=== PATIENT | female | born 1980 | race Caucasian/White ===

== ENCOUNTER 2016-09-20 10:39 | Emergency (ER) | payer MEDICAID, OTHER ==
[2016-09-20 10:56] VITALS: RESP 16; TEMP 98.4
[2016-09-20] MEDS ORDERED: NS 1,000 ML IV ONE ×2 (11:01)
[2016-09-20] MEDS ORDERED: ONDANSETRON 4 MG/2 ML VIAL IVP ONE ×2 (11:01→13:00)
[2016-09-20] MEDS ORDERED: KETOROLAC 30 MG/1 ML SDV IVP ONE (11:01)
--- NOTE | 2016-09-20 11:07 | UCPHY ---
H & P Patient Type: Established Chief Complaint Nursing Narrative: c/o nausea, diarrhea, LINDER, weakness x 2 days Time Seen by Provider: 09/20/16 10:56 HPI/ROS: CHIEF COMPLAINT: Diarrhea HISTORY OF PRESENT ILLNESS: The patient is a 35-year-old female who comes to the Urgent Care complaining of diarrhea for the last 3 days. She had a low- grade fever at home as well as nausea. No abdominal pain. She denies any risk of . No urinary symptoms. She has a history of cholecystectomy. She has not vomited but has felt nauseous. She feels dehydrated and weak. She has not been traveling. She does not drink any unfiltered water. REVIEW OF SYSTEMS: Constitutional: denies: chills, fever, recent illness, recent injury EENTM: denies: blurred vision, double vision, nose congestion Respiratory: denies: cough, shortness of breath Cardiac: denies: chest pain, irregular heart rate, lightheadedness, palpitations Gastrointestinal/Abdominal: See HPI Genitourinary: denies: dysuria, frequency, hematuria, pain Musculoskeletal: denies: joint pain, muscle pain Skin: denies: lesions, rash, jaundice, bruising Neurological: denies: headache, numbness, paresthesia, tingling, dizziness, weakness Hematologic/Lymphatic: denies: blood clots, easy bleeding, easy bruising Immunologic/allergic: denies: HIV/AIDS, transplant EXAM: GENERAL: Well-appearing, well-nourished and in no acute distress. HEAD: Atraumatic, normocephalic. EYES: Pupils equal round and reactive to light, extraocular movements intact, sclera anicteric, conjunctiva are normal. ENT: TMs normal, nares patent, oropharynx clear without exudates. Moist mucous membranes. NECK: Normal range of motion, supple without lymphadenopathy or JVD. LUNGS: Breath sounds clear to auscultation bilaterally and equal. No wheezes rales or rhonchi. HEART: Regular rate and rhythm without murmurs, rubs or gallops. ABDOMEN: Soft, nontender, normoactive bowel sounds. No guarding, no rebound. No masses appreciated. BACK: No CVA tenderness, no spinal tenderness, step-offs or deformities EXTREMITIES: Normal range of motion, no pitting or edema. No clubbing or cyanosis. NEUROLOGICAL: Cranial nerves II through XII grossly intact. Normal speech, normal gait. 5/5 strength, normal movement in all extremities, normal sensation PSYCH: Normal mood, normal affect. SKIN: Warm, dry, normal turgor, no visible rashes or lesions. Source: Patient Exam Limitations: No limitations - Personal History LMP (Females 10-55): 22-28 Days Ago - Medical/Surgical History Hx Asthma: No Hx Chronic Respiratory Disease: No Hx Diabetes: No Hx Cardiac Disease: No Hx Renal Disease: No Hx Cirrhosis: No Hx Alcoholism: No Hx HIV/AIDS: No Hx Splenectomy or Spleen Trauma: No Other PMH: denies - Family History Significant Family History: No pertinent family hx - Social History Smoking Status: Never smoked Alcohol Use: Sober Drug Use: None Constitutional: Initial Vital Signs Temperature (C) 36.9 C 09/20/16 10:54 Heart Rate 82 09/20/16 10:54 Respiratory Rate 16 09/20/16 10:54 Blood Pressure 125/93 H 09/20/16 10:54 O2 Sat (%) 96 09/20/16 10:54 O2 Delivery Mode Room Air Allergies/Adverse Reactions: No Known Allergies Allergy (Verified 06/24/15 10:51) Home Medications: Medication Instructions Recorded Promethazine HCl [Phenergan 25mg 25 mg PO TID PRN #10 tab 09/20/16 (RX)] Medical Decision Making ED Course/Re-evaluation: 12:00 p.m. the patient's abdominal exam remains benign. She has received about half of her IV fluids. 1:00 p.m. the patient is feeling better but her nausea is beginning to return. I will treat her with another dose of Zofran. She would like to go home. Her abdominal exam remains benign. Her vital signs are stable. I will prescribe her Phenergan to take at home but she plans to drive. She declines further workup or testing at this time. We discussed indications for returning. Differential Diagnosis: Partial list of the Differential diagnosis considered include but were not limited to; gastritis, diarrhea, peptic ulcer disease and although unlikely based on the history and physical exam, I also considered appendicitis, diverticulitis, pelvic infection, urinary tract infection, kidney stone, . I discussed these differential diagnoses and the plan with the patient as well as the usual and expected course. The patient understands that the diagnosis is provisional and that in medicine we are not always correct and that further workup is often warranted. Usual and customary warnings were given. All of the patient's questions were answered. The patient was instructed to return to the emergency department should the symptoms at all worsen or return, otherwise to followup with the physician as we discussed. - Data Points Medications Given: Discontinued Medications Sodium Chloride (Ns) 1,000 mls @ 0 mls/hr IV ONCE ONE PRN Reason: Wide Open Stop: 09/20/16 11:02 Last Admin: 09/20/16 11:35 Dose: 1,000 mls Sodium Chloride (Ns) 1,000 mls @ 0 mls/hr IV ONCE ONE PRN Reason: Wide Open Stop: 09/20/16 11:02 Last Admin: 09/20/16 12:15 Dose: 1,000 mls Ketorolac Tromethamine (Toradol) 30 mg IVP EDNOW ONE Stop: 09/20/16 11:02 Last Admin: 09/20/16 11:35 Dose: 30 mg Ondansetron HCl (Zofran) 8 mg IVP EDNOW ONE Stop: 09/20/16 11:02 Last Admin: 09/20/16 11:35 Dose: 8 mg Departure - Departure Disposition: Home, Routine, Self-Care Clinical Impression: Nausea Diarrhea Qualifiers: Diarrhea type: unspecified type Qualified Code(s): R19.7 - Diarrhea, unspecified Condition: Fair Instructions: Acute Diarrhea (ED), Acute Nausea and Vomiting (ED) Referrals: NONE *PRIMARY CARE P,. [Primary Care Provider] - As per Instructions - PQRS PQRS Measurement: Not applicable
[2016-09-20 13:01] VITALS: BP 112/67; PULSE 62; O2SAT 98
== END 2016-09-20 13:19 | disposition home or self-care (01) ==
LOC: CED 10:39
DX: R11.0 Nausea (principal); R19.7 Diarrhea, unspecified
CPT/HCPCS: 96361-PO; 96374-PO; 96375-PO; 96376-PO; G0463-PO; J1885; J2405

== ENCOUNTER 2017-01-07 13:38 | Emergency (ER) | payer MEDICAID ==
[2017-01-07 13:49] VITALS: TEMP 97.9
[2017-01-07] MEDS ORDERED: METOCLOPRAMIDE 10 MG/2 ML VIAL IVP ONE (13:50)
[2017-01-07] MEDS ORDERED: NS 500 ML IV ONE (13:50)
[2017-01-07] MEDS ORDERED: DEXAMETHASONE 10 MG/ML VIAL IVP ONE (13:50)
[2017-01-07] MEDS ORDERED: KETOROLAC 30 MG/1 ML SDV IVP ONE (13:50)
--- NOTE | 2017-01-07 13:54 | EDPHY ---
H & P Time Seen by Provider: 01/07/17 13:45 HPI/ROS: HPI Headache. 36-year-old female by private vehicle. She complains of a gradual onset migraine headache which started on Sunday. She describes it as frontal aching and bandlike. She reports she has had migraine headaches in the past but this 1 has persisted despite her using [id number] Excedrin migraine formula. No neck pain. She has had some photophobia with it which she has had in the past. She has had some mild nausea but no vomiting. No fever. No changes in vision. No other complaints. ROS: Constitutional: No fever, no chills. No weakness. Eyes: No discharge. No changes in vision. ENT: No sore throat. No nasal congestion or rhinorrhea. Respiratory: No cough. No shortness of breath. Cardiac: No chest pain, no palpitations. Gastrointestinal: No abdominal pain, no vomiting, no diarrhea. Genitourinary: No hematuria. No dysuria or increased frequency with urination. Musculoskeletal: No back pain. No neck pain. No myalgias or arthralgias. Skin: No rashes. Neurological: As above. No focal weakness or altered sensation. Past medical history: As above. Otherwise negative. Social history: Nonsmoker. Here by herself. Physical Exam: General Appearance: Alert, she appears uncomfortable. This patient is responding to questions appropriately and in full sentences. This patient appears well-hydrated and well-nourished. Eyes: Pupils equal and round no pallor or injection. No lid edema, erythema or injection. Mild photophobia. No nystagmus. Respiratory: There are no retractions, lungs are clear to auscultation with good air movement bilaterally. Cardiovascular: Regular rate and rhythm. No murmur. Gastrointestinal: Abdomen is soft and nontender, no masses, bowel sounds normal. No focal tenderness at McBurney's point. No Sanchez sign. Neurological: Motor sensory function is grossly intact. Cranial nerves are normal. Gait is normal. Skin: Warm and dry, no rashes. Musculoskeletal: Neck is supple and nontender. No pain on flexion of the neck. Extremities are symmetrical. All joints range without pain or impingement. Psychiatric: No agitation. No depression. Database: EKG: Imaging: Procedures: Emergency department course: IV placed. She was placed on a monitor. She was started on IV normal saline with 500 cc to be given over 1 hour. She has no history of renal dysfunction or contraindications to NSAIDs. She was initially given 10 mg of IV Reglan, 10 mg of IV Decadron, 25 mg of IV Benadryl and 30 mg of IV Toradol. 3:00 p.m., patient re-evaluated, her headache has completely resolved. She feels much better. Her neck remains supple without pain on flexion. Repeat neurologic Assessment is nonfocal. She feels comfortable going home and I feel she is safe for discharge. Follow-up and return to emergency department precautions reviewed with her. All of her questions were answered. She was discharged in good condition. Differential Diagnosis: The differential diagnosis on this patient includes but is not limited to migraine headache. Subarachnoid hemorrhage, cavernous sinus thrombosis, sagittal sinus thrombosis, meningitis, encephalitis, temporal arteritis unlikely. This represents a partial list of diagnoses considered. These considerations are based on history, physical exam, past history, reassessment and diagnostic testing. Smoking Status: Never smoked Constitutional: Initial Vital Signs Temperature (C) 36.6 C 01/07/17 13:47 Heart Rate 80 01/07/17 13:47 Respiratory Rate 18 01/07/17 13:47 Blood Pressure 142/101 H 01/07/17 13:47 O2 Sat (%) 96 01/07/17 13:47 O2 Delivery Mode Room Air Allergies/Adverse Reactions: No Known Allergies Allergy (Verified 01/07/17 13:47) Home Medications: Medication Instructions Recorded NK [No Known Home Meds] 01/07/17 Medical Decision Making - Data Points Medications Given: Discontinued Medications Dexamethasone (Decadron Injection) 10 mg IVP EDNOW ONE Stop: 01/07/17 13:51 Last Admin: 01/07/17 13:52 Dose: 10 mg Diphenhydramine HCl (Benadryl Injection) 25 mg IVP EDNOW ONE Stop: 01/07/17 13:51 Last Admin: 01/07/17 13:59 Dose: 25 mg Sodium Chloride (Ns) 500 mls @ 0 mls/hr IV ONCE ONE; Wide Open PRN Reason: Protocol Stop: 01/07/17 13:51 Last Admin: 01/07/17 13:50 Dose: 500 mls Ketorolac Tromethamine (Toradol) 30 mg IVP EDNOW ONE Stop: 01/07/17 13:51 Last Admin: 01/07/17 13:55 Dose: 30 mg Metoclopramide HCl (Reglan Injection) 10 mg IVP EDNOW ONE Stop: 01/07/17 13:51 Last Admin: 01/07/17 14:04 Dose: 10 mg Departure - Departure Disposition: Home, Routine, Self-Care Clinical Impression: Migraine headache Condition: Good Instructions: Acute Headache (ED) Additional Instructions: Read and follow provided instructions. Follow-up with your primary care physician in 1-2 days for re-evaluation. Return to the emergency department for return of headache, fever, vomiting, neck pain or other serious concerns. Referrals: NONE *PRIMARY CARE P,. [Primary Care Provider] - As per Instructions
[2017-01-07 15:14] VITALS: O2SAT 94
[2017-01-07 15:30] VITALS: BP 112/82; PULSE 71; RESP 16
== END 2017-01-07 15:16 | disposition home or self-care (01) ==
LOC: CED 13:38
DX: G43.909 Migraine, unspecified, not intractable, without status migrainosus (principal)
CPT/HCPCS: 96374; J1200; J1885; J2765

== ENCOUNTER → 2017-03-04 | Outpatient (CLI) | payer MEDICAID ==
[~2017-03-04] MED LIST: GADOBUTROL 10 ML VIAL IVP ONE
== END ==
LOC: FIMAGING 09:01
PROVIDERS: ATTEND Psychiatry & Neurology Neurology
DX: M50.30 Other cervical disc degeneration, unspecified cervical region (principal); M50.222 Other cervical disc displacement at C5-C6 level; M50.223 Other cervical disc displacement at C6-C7 level; G43.909 Migraine, unspecified, not intractable, without status migrainosus
CPT/HCPCS: A9585

== ENCOUNTER 2017-03-27 11:42 | Emergency (ER) | payer MEDICAID ==
[2017-03-27] MEDS ORDERED: KETOROLAC 30 MG/1 ML SDV IVP ONE (12:26)
[2017-03-27] MEDS ORDERED: ONDANSETRON 4 MG/2 ML VIAL IVP ONE ×2 (12:26→13:25)
[2017-03-27] MEDS ORDERED: NS 1,000 ML IV ONE ×2 (12:26→13:38)
--- NOTE | 2017-03-27 12:30 | EDPHY ---
H & P Time Seen by Provider: 03/27/17 12:11 HPI/ROS: CHIEF COMPLAINT: Low back pain, diarrhea HISTORY OF PRESENT ILLNESS: 36-year-old female presents with low back pain and diarrhea. Onset of low back pain yesterday. The low back pain is constant and increases with movement and prolonged sitting. Similar to prior episodes of low back pain. Status post micro diskectomy and 1016. She has been taking ibuprofen and Tylenol with some relief. Onset of diarrhea this morning. The diarrhea is watery, 5 episodes, and associated with nausea. No vomiting or fever. REVIEW OF SYSTEMS: Constitutional: No fever, no chills Eyes: No visual changes ENT: No sore throat Respiratory: No cough, no shortness of breath Cardiac: No chest pain Genitourinary: no dysuria Musculoskeletal: No leg pain or swelling Skin: No rash Neurological: No headache, no weakness Psychiatric: No anxiety Past Medical/Surgical History: Lumbar diskectomy Migraine headaches Cholecystectomy Social History: No recent alcohol Smoking Status: Never smoked Physical Exam: General Appearance: Alert, pleasant, texting as I enter the room Eyes: Pupils equal and round, no conjunctival pallor ENT, Mouth: Mucous membranes moist Neck: Normal inspection Respiratory: Lungs are clear to auscultation Cardiovascular: Regular rate and rhythm Gastrointestinal: Abdomen is soft and nontender Back: Lumbar tenderness Neurological: A&O, nonfocal, normal gait Skin: Warm and dry, no rash Extremities: normal inspection Psychiatric: Mood and affect normal Constitutional: Initial Vital Signs Temperature (C) 36.6 C 03/27/17 12:00 Heart Rate 105 H 03/27/17 12:00 Respiratory Rate 18 03/27/17 12:00 Blood Pressure 161/114 H 03/27/17 12:00 O2 Sat (%) 95 03/27/17 12:00 O2 Delivery Mode Room Air Allergies/Adverse Reactions: No Known Allergies Allergy (Verified 01/07/17 13:47) Home Medications: Medication Instructions Recorded NK [No Known Home Meds] 01/07/17 Medical Decision Making ED Course/Re-evaluation: This patient presents with low back pain and diarrhea. The low back pain is typical of her usual low back pain. In addition, she has nausea and diarrhea, likely viral in etiology. IV normal saline 1 L, Zofran and Toradol IV given for symptomatic relief. She is under the care of a neurosurgeon, Dr. Bacon, and has seen him recently. I do not feel that neuro imaging is indicated today. Pt felt better after Zofran IV x 2 and Toradol IV. Abd remained soft, NT. Will f/u PCP. Differential Diagnosis: includes though not limited to appy, diverticulitis, SBO, kidney stone, pyelo, epidural abscess - Data Points Medications Given: Discontinued Medications Sodium Chloride (Ns) 1,000 mls @ 0 mls/hr IV EDNOW ONE; Wide Open PRN Reason: Protocol Stop: 03/27/17 12:27 Last Admin: 03/27/17 12:48 Dose: 1,000 mls Sodium Chloride (Ns) 1,000 mls @ 0 mls/hr IV ONCE ONE PRN Reason: Wide Open Stop: 03/27/17 13:39 Last Admin: 03/27/17 13:42 Dose: 1,000 mls Ketorolac Tromethamine (Toradol) 30 mg IVP EDNOW ONE Stop: 03/27/17 12:27 Last Admin: 03/27/17 12:49 Dose: 30 mg Ondansetron HCl (Zofran) 4 mg IVP EDNOW ONE Stop: 03/27/17 12:27 Last Admin: 03/27/17 12:50 Dose: 4 mg Ondansetron HCl (Zofran) 4 mg IVP EDNOW ONE Stop: 03/27/17 13:26 Last Admin: 03/27/17 13:37 Dose: 4 mg Departure - Departure Disposition: Home, Routine, Self-Care Clinical Impression: Low back pain Qualifiers: Chronicity: acute Back pain laterality: bilateral Sciatica presence: without sciatica Qualified Code(s): M54.5 - Low back pain Diarrhea Qualifiers: Diarrhea type: presumed infectious Qualified Code(s): A09 - Infectious gastroenteritis and colitis, unspecified Condition: Good Instructions: Acute Diarrhea (ED) Additional Instructions: Take Imodium as needed for diarrhea. Dosing instructions are on the medication label. Referrals: Parish Melton DO [Primary Care Provider] - As per Instructions
[2017-03-27 14:52] VITALS: BP 125/62; PULSE 74; RESP 18; TEMP 98; O2SAT 94
== END 2017-03-27 14:50 | disposition home or self-care (01) ==
LOC: CED 11:42
DX: R19.7 Diarrhea, unspecified (principal); M54.5 Low back pain
CPT/HCPCS: 96374; J1885; J2405

== ENCOUNTER 2018-01-04 05:46 | Emergency (ER) | payer MEDICAID ==
--- NOTE | 2018-01-04 06:24 | EDPHY ---
H & P Smoking Status: Never smoked Time Seen by Provider: 01/04/18 05:56 HPI/ROS: CHIEF COMPLAINT: Headache, fever, cough, sore throat, loss of voice HISTORY OF PRESENT ILLNESS: This is a previously healthy 29-year-old female who is been ill for 5 days now. The 1st day was that of a runny nose with a mild cough without fever. Over the ensuing days the cough got a little bit worse, though dry, and there was also a sore throat. Yesterday, she was notably worse with a significant fever of 101, along with worsening sore throat as well as cough. She found it difficult to sleep as when she would lay down the cough would become more problematic. She did try some [id number] multi symptom cold relief, but it did not help. Likewise the fever became even more of a problem tonight and recorded at 103.2 at home. With this she has had a of a headache, chiefly frontal, as of yesterday. She also notes that she has chronic neck pain since her cervical fusion this past May but feels that it worse than baseline. The headache is moderate, does not radiate into the neck, is worth with coughing, does not feel worse with laying down, and her sore throat is so sore that she has not been able to us really swallow Tylenol ibuprofen thus the headache continues on and she continues with fever. Also, she has diffuse myalgias, which are more bothersome than the LINDER. She has had no known exposure of any significant sort. There has been no travel last 3 months. She [place] been to the [place] Her 16-year -old daughter was somewhat ill some 2 weeks ago with a mild URI but nothing of this magnitude nor significant sore throat. She did go to [place] for a family vacation on December 22 but does not recall any specific and mosquito bites , nor tics. REVIEW OF SYSTEMS: Constitutional: Yes to Fevers and chills, as well as sweats. Eyes: No discharge ENT: Moderate sore throat and particularly horse to swallow this is had a poor p. O. Intake and unable to take [id number]-murafcn analgesics for her fever . Cardiovascular: No chest pain, no palpitations. Respiratory: The cough is dry, however no shortness of breath, or wheezing. Gastrointestinal: No nausea vomiting or diarrhea. No abdominal pain. Genitourinary: No hematuria or frequency. Musculoskeletal: No back pain. Skin: No rashes. Neurological: No confusion numbness or tingling though she has had headache as noted above. 10 point ROS otherwise negative (Kirill Mayen) Physical Exam: General Appearance: Alert, no distress. Febrile. Voice is hoarse, and raspy/ laryngitic, though able to handle secretions well. No respiratory distress. Eyes: Pupils equal and round no pallor or injection. No icterus ENT, Mouth: Mucous membranes moderately dry. Pharynx with mild erythema, and areas of petechiae on the soft palate to a slight degree but no exudate. TM Clear. She is able to hear fingers rubbed adjacent to her pinnae. No tenderness overlying the larynx. Neck: Bilateral moderate anterior adenopathy. No posterior adenopathy. She is able to bring her chin to her chest and when I attempt to flex the neck she is particularly uncomfortable and resists. No JVD. Trachea in midline. Respiratory: There are no retractions, lungs are clear to auscultation. Chest wall: Nontender to palpation. No crepitus. Cardiovascular: Regular rate and rhythm, with a mild grade 1/6, murmur heard best at the mid left sternal border compatible with a physiologic murmur. Abdomen: Soft and nontender, no masses, bowel sounds normal. Neurological: Ox3. No motor weakness. Sensation intact. Gait nl. Skin: Warm and dry, no rashes. Musculoskeletal: No joint swelling. Extremities: No edema. Homans sign negative. No cords. Small area of well- healed scratch present on the inner aspect of the right ankle Psychiatric: Normal affect. Patient is oriented X 3. There is no agitation ( Kirill Mayen) Constitutional: Initial Vital Signs Temperature (C) 38.5 C H 01/04/18 05:50 Heart Rate 107 H 01/04/18 05:50 Respiratory Rate 18 01/04/18 05:50 Blood Pressure 148/94 H 01/04/18 05:50 O2 Sat (%) 94 01/04/18 05:50 O2 Delivery Mode Room Air Allergies/Adverse Reactions: No Known Allergies Allergy (Verified 01/07/17 13:47) Home Medications: Medication Instructions Recorded NK [No Known Home Meds] 06/18/17 Medical Decision Making Procedures: Procedure: Lumbar puncture. Indication: Headache with fever and stiff neck so as to rule out meningitis After verbal informed consent from patient explaining the risks including infection, bleeding, and neurologic damage, a lumbar puncture was performed after the patient was prepped and draped in the usual fashion. Patient positioned in a lateral decubitous postion. The back was anesthetized with 1% lidocaine. Approximately 4 cc of clear fluid was obtained. Opening pressure 110 mm of water. There were no complications. Pt tolerated the procedure well. The procedure was performed by myself. (Kirill Mayen) ED Course/Re-evaluation: After the initial interview the patient was medicated with the followin L of normal saline 640 mg of liquid Tylenol 40 mg of liquid ibuprofen We discussed pain management and she did not want anything stronger. She did not feel she needed anything for nausea. We had a lengthy discussion regarding the merits of a spinal tap in the setting of stiffness of the neck with fever and headache. Though she has had trouble in the prior past with a epidural injection for steroids whereby she had difficulties for the next month with respect to backache, she is willing to undergo the procedure at this time. Risks and benefits as well as the potential complications and procedure itself we discussed at length. She agreed. The initial blood values of note upon transfer case was follows: Comp panel negative essentially though glucose slightly elevated 101 and creatinine low at 0.6. LFTs were normal Lactic acid normal at 0.7 CSF studies were sent PCR for strep and influenza were in pending Chest x-ray pending Case was discussed with and transferred to Dr. Erwin. (Kirill Mayen) Differential Diagnosis: Diagnostic considerations include, but are not limited to, the following: URI, sinusitis, pharyngitis, otitis media, pneumonia, allergy, influenza, strep throat, viral pharyngitis, meningitis, encephalitis, tick-borne illness. (Kirill Mayen) Other Provider: 8:24 a.m. Assumed care from Dr. Mayen pending results of CSF analysis, chest x- ray and other test. Chest x-ray showed no pneumonia or other acute process. Influenza test was negative. She denies any known tick bite but [place]. She also had some kind of bug bite on her left ankle. On re-evaluation patient was complaining of feeling hot, headachy and sore throat despite Tylenol and ibuprofen. She feels warm and looks uncomfortable but nontoxic. She was given a 2nd L normal saline. On re-evaluation the patient was feeling somewhat better and taking ice chips without difficulty. CSF showed no evidence of infection. Rapid strep was negative. Urinalysis showed blood but no evidence of infection and the patient is currently on her menses. Given the lack of urinary symptoms and constellation of other viral symptoms like cough, I doubt urinary tract infection. Patient will be discharged home in improved condition. We discussed return precautions. (Barbie Erwin) - Data Points Laboratory Results: Laboratory Results 01/04/18 06:24 01/04/18 01/04/18 Unknown 06:55 CSF West [place] IgG Ab Pending CSF West Nile IgM Ab Pending CSF West Nile Interp Pending Group A Strep DNA NEGATIVE (NEGATIVE) Microbiology Results: MICROBIOLOGY 01/04/18 06:55 Cerebral Spinal Fluid Gram Stain - Final Medications Given: Discontinued Medications Acetaminophen (Tylenol 160mg/5ml Oral Liquid) 640 mg PO EDNOW ONE Stop: 01/04/18 06:26 Last Admin: 01/04/18 06:31 Dose: 640 mg Sodium Chloride (Ns) 1,000 mls @ 0 mls/hr IV EDNOW ONE; Wide Open PRN Reason: Protocol Stop: 01/04/18 06:26 Last Admin: 01/04/18 06:31 Dose: 1,000 mls Sodium Chloride (Ns) 1,000 mls @ 0 mls/hr IV ONCE ONE PRN Reason: Wide Open Stop: 01/04/18 08:27 Last Admin: 01/04/18 08:27 Dose: 1,000 mls Ibuprofen (Motrin Oral Solution) 400 mg PO EDNOW ONE Stop: 01/04/18 06:26 Last Admin: 01/04/18 06:32 Dose: 400 mg Point of Care Test Results: Chemistry 01/04/18 06:56 POC Sodium 138 mEq/L mEq/L (135-145) POC Potassium 3.4 mEq/L mEq/L (3.3-5.0) POC Chloride 105.0 mEq/L mEq/L (97-110) POC Total CO2 23 mEq/L mEq/L (22-31) POC BUN 10 mg/dL mg/dL (7-23) POC Creatinine 0.6 mg/dL mg/dL (0.6-1.0) POC Glucose 101 mg/dL H mg/dL (70-100) POC Calcium 8.5 mg/dL mg/dL (8.5-10.4) POC Total Bilirubin 0.6 mg/dL mg/dL (0.1-1.4) POC AST 26 IU/L IU/L (14-46) POC ALT 22 IU/L IU/L (9-52) POC Alk Phosphatase 49 IU/L IU/L (38-126) POC Total Protein 6.9 g/dL g/dL (6.3-8.2) POC Albumin 3.6 g/dL g/dL (3.5-5.0) Blood Gas/Lactic Acid-Arterial 01/04/18 06:52 POC Blood Source VENOUS Blood Gas/Lactic Acid-Venous 01/04/18 06:52 POC VBG pH 7.43 H (7.31-7.42) POC VBG pCO2 34 mmHg L mmHg (40-44) POC VBG pO2 61 mmHg H mmHg (35-40) POC VBG HCO3 22 mEq/L mEq/L (22-26) POC VBG Total CO2 23 mEq/L mEq/L (21-27) POC VBG Base Excess -2.0 mEq/L mEq/L (-2.5-2.5) POC Mix VBG O2 Sat 90 % H % (65-75) POC Lactic Acid Harinder 0.7 mmol/L mmol/L (0.7-2.1) Influenza PCR Flu Nasal Swab Collection Date 01/04/18 Flu Nasal Swab Collection Date 01/04/18 Flu Nasal Swab Collection Time 06:30 Flu Nasal Swab Collection Time 06:30 Influenza A Result Not Detected Influenza A Result Intermediate/Invalid Influenza B Result Not Detected Influenza B Result Intermediate/Invalid Strep Strep Throat Swab Collection 01/04/18 Date Strep Throat Swab Swab 06:30 Collection Time Strep Result Intermediate/Invalid Urine Dip Collection Date 01/04/18 Collection Time 09:12 Specific [place] (1.002-1.030) 1.030 PH (5.0-7.5) 6.0 Leukocytes (Negative) Negative Nitrites (Negative) Negative Protein (Negative) 1+ Glucose (Negative) Negative Ketones (Negative) Negative Urobilnogen (0.2-1.0 EU) 0.2 Bilirubin (Negative) Negative Blood (Negative) 2+ Departure - Departure Disposition: Home, Routine, Self-Care Clinical Impression: Influenza-like illness Clinical Impression: (Ruled Out): Acute pharyngitis Condition: Good Instructions: Fever in Adults (ED) Additional Instructions: You were seen by Dr. Barbie Erwin today. Your blood work was all normal today. We found no evidence of meningitis or strep throat. Continue to take Tylenol a 1000 mg every 4 hr and/or ibuprofen 600 mg every 6 hr while awake as needed for fever and sore throat and headache. Drink plenty of fluids. Please follow-up with your primary care physician or return to the emergency department if your fever persists for another 48 hr or you develop any new or worsening symptoms. Return for any worsening or new concerns. Referrals: Patient,NotPresent [Primary Care Provider] - As per Instructions Stand Alone Forms: Work Excuse
[2018-01-04] MEDS ORDERED: IBUPROFEN SUSP 100 MG/5 ML UDCUP PO ONE (06:25)
[2018-01-04] MEDS ORDERED: NS 1,000 ML IV ONE ×2 (06:25→08:26)
[2018-01-04] MEDS ORDERED: ACETAMINOPHEN 160 MG/5 ML UDCUP PO ONE (06:25)
[2018-01-04 09:19] LABS: PLATELET COUNT 300 10^3/uL (150-400)
[2018-01-04 09:31] VITALS: BP 108/67
== END 2018-01-04 09:44 | disposition home or self-care (01) ==
LOC: CED 05:46
PROC: 009U3ZX Drainage of Spinal Canal, Percutaneous Approach, Diagnostic (ICD-10-PCS; principal; 2018-01-04)
DX: J11.1 Influenza due to unidentified influenza virus with other respiratory manifestations (principal)
CPT/HCPCS: 71046-PO; 80053-PO; 83605-PO

== ENCOUNTER 2018-07-23 09:37 | Emergency (ER) | payer MEDICAID ==
[2018-07-23] MEDS ORDERED: IBUPROFEN 600 MG TAB PO ONE (10:00)
[2018-07-23] MEDS ORDERED: ACETAMINOPHEN 500 MG TAB PO ONE (10:01)
[2018-07-23] MEDS ORDERED: traMADol 50 MG TAB PO ONE (10:01)
[2018-07-23] MEDS ORDERED: DIAZEPAM 5 MG TAB PO ONE (10:01)
[2018-07-23] MEDS ORDERED: LIDOCAINE 4%/MENTHOL 1% PATCH TD ONE (10:23)
--- NOTE | 2018-07-23 11:05 | EDPHY ---
H & P Time Seen by Provider: 07/23/18 09:42 HPI/ROS: This patient is a severe left paraspinous muscular pain radiates down her posterior leg to the mid calf similar to prior episodes of sciatica. She has a history of lumbar fusion in 2014 is improved well since then with occasional flares of back pain. She had some [place] and Flexeril left over from a neck surgery and took some of the last night with partial improvement. She denies any trauma but did travel via airplane from [place] 24 hr prior to the onset of the symptoms a day ago. She describes the pain is achy in nature sharp with movements peak intensity 8/10. She has not taken any analgesics yet this morning. She notes no other associated symptoms except occasional intermittent paresthesias to the left foot. She came in with her boyfriend by private vehicle. ROS: Constitutional: No fevers Neuro: No focal weakness, bowel or bladder incontinence or midline neck or back pain Integumentary: No skin rash : Dysuria frequency urgency, vaginal discharge or hematuria GI: No abdominal pain 7 point review of symptoms is performed and otherwise negative with exception of pertinent positives and negatives listed in HPI and ROS Smoking Status: Never smoked Physical Exam: General Appearance: Alert, no distress. Eyes: Pupils equal and round no pallor or injection. ENT, Mouth: Mucous membranes moist. Respiratory: There are no retractions, lungs are clear to auscultation. Cardiovascular: Regular rate and rhythm. Gastrointestinal: Abdomen is soft and nontender, no masses, bowel sounds normal. Neurological: GCS 15. She maintains normal light touch sensory exam bilateral lower extremities and 5/5 strength in great toe dorsiflexion plantar flexion bilaterally. She has symmetric 2+ patellar DTRs and weak but symmetric bilateral Achilles DTRs. Back: She has a clean dry intact midline scar with no overlying tenderness or erythema. She has limited range of motion for flexion due to pain. Skin: Warm and dry, no rashes. Musculoskeletal: Neck is supple nontender. Extremities are symmetrical, full range of motion. Psychiatric: Mood and affect are normal DIFFERENTIAL DIAGNOSIS: After history and physical exam differential diagnosis was considered for sciatica, disc herniation/lumbar radiculopathy, low back strain Constitutional: Initial Vital Signs Temperature (C) 36.9 C 07/23/18 09:43 Heart Rate 86 07/23/18 09:43 Respiratory Rate 18 07/23/18 09:43 Blood Pressure 136/105 H 07/23/18 09:43 O2 Sat (%) 96 07/23/18 09:43 O2 Delivery Mode Room Air Allergies/Adverse Reactions: No Known Allergies Allergy (Verified 07/23/18 09:43) Home Medications: Medication Instructions Recorded Hydrocodone/APAP 5/325 [[place] 1 - 2 tab PO Q4PRN PRN #20 tab 07/23/18 5/325 (*)] Lidocaine [Lidoderm] 1 each TP DAILY #15 adh..patch 07/23/18 Methocarbamol [Robaxin 750 mg (*)] 750 - 1,500 mg PO QID PRN #30 tab 07/23/18 methylPREDNISolone [Medrol Dose 1 each PO AD #1 ea 07/23/18 Geovanny] MDM/Departure - MDM Medications Given: Discontinued Medications Acetaminophen (Tylenol) 1,000 mg PO EDNOW ONE Stop: 07/23/18 10:02 Last Admin: 07/23/18 10:17 Dose: 1,000 mg Diazepam (Valium) 10 mg PO EDNOW ONE Stop: 07/23/18 10:02 Last Admin: 07/23/18 10:17 Dose: 10 mg Ibuprofen (Motrin) 600 mg PO EDNOW ONE Stop: 07/23/18 10:01 Last Admin: 07/23/18 10:17 Dose: 600 mg Miscellaneous Medication (Icy Hot Lidocaine/Menthol 4%/1% Patch) 1 patch TD EDNOW ONE Stop: 07/23/18 10:24 Last Admin: 07/23/18 10:40 Dose: 1 patch Tramadol HCl (Ultram) 100 mg PO EDNOW ONE Stop: 07/23/18 10:02 Last Admin: 07/23/18 10:17 Dose: 100 mg ED Course/Re-evaluation: Patient was offered parenteral analgesics but preferred oral medications for her pain She is given Valium, tramadol, ibuprofen, Tylenol as well as the Lidoderm patch with partial but incomplete improvement. Counseled regarding her back pain. Discussion: Patient with paraspinous lumbar pain radiating down her leg consistent with sciatica without heart evidence of any acute neuro deficits. No evidence of cauda equina. The given prior history of surgery and strong radicular symptoms suggested that she take a Solu-Medrol course-Medrol Dosepak. She will take this as well as methocarbamol muscle relaxant and hydrocodone/ Tylenol for pain control as needed following up with her neurosurgeon as an outpatient for any ongoing symptoms. She understands need to return emergency department should she develop any significant worsening despite treatment plan. - Depart Disposition: Home, Routine, Self-Care Clinical Impression: Sciatica Qualifiers: Laterality: left Qualified Code(s): M54.32 - Sciatica, left side Condition: Good Instructions: Sciatica (ED) Additional Instructions: Diagnosis: Sciatica Plan: Ibuprofen anti-inflammatory. If you're still not improving with initial round of meds then start the Medrol Dosepak and hold off on ibuprofen while taking the Medrol Dosepak. In addition, methocarbamol muscle relaxant, tylenol/hydrocodone in addition if needed. No driving, alcohol or work on hydrocodone Also consider Lidoderm patches Start gentle stretching as described Avoid lifting until symptoms resolve. Follow up with your primary care physician for any ongoing symptoms that persist beyond the next 5-7 days Return for any significant worsening despite the treatment plan. Stand Alone Forms: Work Excuse Prescriptions: Hydrocodone/APAP 5/325 [[place] 5/325 (*)] 1 - 2 tab PO Q4PRN PRN #20 tab PRN Reason: Pain Lidocaine [Lidoderm] 1 each TP DAILY #15 adh..patch Methocarbamol [Robaxin 750 mg (*)] 750 - 1,500 mg PO QID PRN #30 tab PRN Reason: Muscle Spasms methylPREDNISolone [Medrol Dose Geovanny] 1 each PO AD #1 ea Referrals: Zoya Sepulveda DO [Primary Care Provider] - As per Instructions
[2018-07-23 12:05] VITALS: BP 159/86
[2018-07-23] MEDS ORDERED: PATCH REMOVAL 1 EA PATCH TD SCH (21:00)
== END 2018-07-23 11:16 | disposition home or self-care (01) ==
LOC: CED 09:37
DX: M54.32 Sciatica, left side (principal); Z98.1 Arthrodesis status
CPT/HCPCS: 99284-ER

== ENCOUNTER → 2018-07-26 | Outpatient (CLI) | payer MEDICAID | LOC: CIMAGING 15:32 | PROVIDERS: ATTEND Family Medicine | DX: M54.42 Lumbago with sciatica, left side (principal); G89.29 Other chronic pain | CPT/HCPCS: 72100-PO ==

== ENCOUNTER → 2018-08-07 | Outpatient (CLI) | payer MEDICAID | LOC: FIMAGING 19:02 | PROVIDERS: ATTEND Family Medicine | DX: M54.6 Pain in thoracic spine (principal); M51.35 Other intervertebral disc degeneration, thoracolumbar region; M48.061 Spinal stenosis, lumbar region without neurogenic claudication ==